=== PATIENT | female | born 1965 | race American Indian/Alaskan Native ===

== ENCOUNTER 2020-07-06 21:17 | Emergency (ER) | payer OTHER ==
[2020-07-06] MEDS ORDERED: CYCLOBENZAPRINE 10 MG TAB PO ONE (22:36)
[2020-07-06] MEDS ORDERED: ACETAMINOPHEN 500 MG TAB PO ONE (22:36)
[2020-07-06] MEDS ORDERED: IBUPROFEN 600 MG TAB PO ONE (22:36)
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
[2020-07-07 02:59] VITALS: BP 138/80
== END 2020-07-07 02:17 | disposition home or self-care (01) ==
LOC: ED 21:17
DX: S83.92XA Sprain of unspecified site of left knee, initial encounter (principal); S73.102A Unspecified sprain of left hip, initial encounter; M62.830 Muscle spasm of back; M62.838 Other muscle spasm; X58.XXXA Exposure to other specified factors, initial encounter; Y93.89 Activity, other specified; Y92.89 Other specified places as the place of occurrence of the external cause; Y99.8 Other external cause status
CPT/HCPCS: 70450; 72100; 72125